=== PATIENT | female | born 1970 | race Hispanic/Latino ===

== ENCOUNTER 2017-11-07 21:46 | Emergency (ER) | payer OTHER ==
[2017-11-07] MEDS ORDERED: ONDANSETRON HCL 4 MG/2 ML VIAL ONE (22:15)
[2017-11-07] MEDS ORDERED: SODIUM CHLORIDE 0.9% 1000ML 1,000 ML IV ONE (22:15)
[2017-11-07 22:24] LABS: BASOPHILS % (AUTO) 0.6 % (0.0-5.0); EOSINOPHILS % (AUTO) 0.8 % (0.0-8.0); HEMATOCRIT 39.2 % (36-48); LYMPHOCYTES % (AUTO) 24.6 % (21.0-51.0); MEAN CORPUSCULAR HEMOGLOBIN 23.4 pg (27.0-33.0); MEAN CORPUSCULAR HGB CONC 32.6 g/dL (32.0-36.0); MEAN CORPUSCULAR VOLUME 71.9 fL (79-99); MONOCYTES % (AUTO) 7.2 % (3.0-13.0); NEUTROPHILS % (AUTO) 66.8 % (40.0-77.0); NUCLEATED RED BLOOD CELLS 0.1 % (0.0-0.19); PLATELET COUNT (AUTO) 404 K/uL (130-400); RED BLOOD CELL COUNT(AUTO) 5.45 MIL/uL (4.00-5.50); RED CELL DISTRIBUTION WIDTH 18.4 % (11.0-15.5); WHITE BLOOD COUNT (AUTO) 8.6 K/uL (4.8-10.8)
[2017-11-07 22:26] LABS: APPEARANCE,URINE Cloudy (CLEAR); BILIRUBIN,URINE Negative (NEGATIVE); COLOR,URINE Yellow (YELLOW); GLUCOSE, URINE (UA) Negative (NEGATIVE); KETONES,URINE >=160 mg/dL (NEGATIVE); LEUKOCYTE ESTERASE ,URINE Negative (NEGATIVE); NITRATE,URINE Negative (NEGATIVE); OCCULT BLOOD,URINE Small (NEGATIVE); PROTEIN,URINE Trace (NEGATIVE)
[2017-11-07 22:34] LABS: POTASSIUM 3.7 mmol/L (3.5-5.1)
[2017-11-07 22:38] LABS: ALBUMIN 4.4 g/dL (3.5-5.0); BILIRUBIN,TOTAL 0.9 mg/dL (0.2-1.0); TOTAL PROTEIN, SERUM 9.2 g/dL (6.0-8.3)
[2017-11-07 22:39] LABS: HCG,QUAL RESULT NEGATIVE (NEGATIVE)
[2017-11-07 22:42] LABS: BACTERIA,URINE Few /HPF (None Seen); MUCUS,URINE Many LPF (None Seen); SQUAMOUS EPITHELIAL CELL,UR Many /HPF (0-2)
[2017-11-07 22:43] LABS: AMORPHOUS SEDIMENT,UR Moderate /LPF (None Seen)
[2017-11-07] MEDS ORDERED: MORPHINE SULFATE 4 MG/1ML SYG ONE (22:50)
[2017-11-07] MEDS ORDERED: CEFTRIAXONE SODIUM 1 GM ONE (23:43)
== END 2017-11-08 00:23 | disposition home or self-care (01) ==
LOC: EDH 21:46
DX: N83.292 Other ovarian cyst, left side (principal); N39.0 Urinary tract infection, site not specified
CPT/HCPCS: 36415; 74176; 80053; 81001; 81025; 83690; 85025; 96374; 96375; 99285; J0696; J2270; J2405; J7030

== ENCOUNTER 2019-02-26 10:24 | Emergency (ER) | payer OTHER ==
[2019-02-26] MEDS ORDERED: ONDANSETRON HCL 4 MG/2 ML VIAL ONE (11:05)
[2019-02-26] MEDS ORDERED: MECLIZINE HCL 25 MG TABLET ONE (11:05)
[2019-02-26] MEDS ORDERED: SODIUM CHLORIDE 0.9% 500ML 500 ML IV ONE (11:06)
[2019-02-26 11:15] LABS: BASOPHILS % (AUTO) 0.8 % (0.0-5.0); EOSINOPHILS % (AUTO) 1.1 % (0.0-8.0); HEMATOCRIT 28.9 % (36-48); LYMPHOCYTES % (AUTO) 31.5 % (21.0-51.0); MEAN CORPUSCULAR HEMOGLOBIN 22.7 pg (27.0-33.0); MONOCYTES % (AUTO) 10.9 % (3.0-13.0); NEUTROPHILS % (AUTO) 55.7 % (40.0-77.0); NUCLEATED RED BLOOD CELLS 0.1 % (0.0-0.19); PLATELET COUNT (AUTO) 244 K/uL (130-400); RED BLOOD CELL COUNT(AUTO) 4.19 MIL/uL (4.00-5.50); RED CELL DISTRIBUTION WIDTH 18.1 % (11.0-15.5); WHITE BLOOD COUNT (AUTO) 4.1 K/uL (4.8-10.8)
[2019-02-26 11:49] LABS: CREATININE 0.7 mg/dL (0.5-1.5); POTASSIUM 4.2 mmol/L (3.5-5.1)
== END 2019-02-26 13:42 | disposition home or self-care (01) ==
LOC: EDH 10:24
DX: I95.9 Hypotension, unspecified (principal); R42 Dizziness and giddiness; Z98.890 Other specified postprocedural states
CPT/HCPCS: 36415; 70450; 80048; 82550; 84484; 85025; 93005; 96361; 96374; 99285; J2405; J7040

== ENCOUNTER 2019-03-18 10:48 | Emergency (ER) | payer OTHER ==
[2019-03-18] MEDS ORDERED: AMOXICILLIN/POTASSIUM CLAV 875-125 TABLET PO ONE (11:21)
[2019-03-18] MEDS ORDERED: TETANUS/DIPHTHERIA TOXOID [ADULT] 0.5 ML VIAL IM ONE (11:22)
[2019-03-18] MEDS ORDERED: SODIUM CHLORIDE 0.9% 1000ML 1,000 ML IV ONE (13:00)
== END 2019-03-18 12:19 | disposition home or self-care (01) ==
LOC: EDH 10:48
DX: S60.473A Other superficial bite of left middle finger, initial encounter (principal); Y04.1XXA Assault by human bite, initial encounter; Y93.89 Activity, other specified; Y92.218 Other school as the place of occurrence of the external cause; Y99.8 Other external cause status
CPT/HCPCS: 90471; 90714; 99283; J7030